=== PATIENT | female | born 1975 | race African-American/Black ===

== ENCOUNTER 2017-09-09 00:32 | Inpatient (IN) | payer MEDICARE ==
[2017-09-09] MEDS ORDERED: Fentanyl 100 MCG/2 ML VIAL ONE ×2 (00:46→02:20)
[2017-09-09 00:59] LABS: Oxyhemoglobin 97.5 % (94.0-97.0); Sodium 137 mmol/L (135-148)
[2017-09-09 01:16] LABS: Bilirubin Negative (Negative); Blood, Urine Large (Negative); Glucose, Urine (Dipstick) Negative (Negative); Ketone, Urine 15 mg/dL (Negative); Nitrite Positive (Negative); Protein, Urine (Dipstick) 100 mg/dL (Neg-Trace)
[2017-09-09 01:19] LABS: Bacteria/HPF 4+ HPF (None Seen); Hyaline Casts/LPF 4-6 HYALINE CAST LPF (0-3 Hyaline); RBC/HPF GREATER THAN 50-TNTC HPF (0-3); Squamous Epithelial None Seen HPF (0-3)
[2017-09-09 01:28] LABS: Hematocrit 19.9 % (36.0-47.0); Mean Platelet Volume 6.1 fL (7.4-10.4); Red Blood Cell (RBC) Count 1.95 mill/uL (4.20-5.40); White Blood Cell (WBC) Count 1.8 thou/uL (4.8-10.8)
[2017-09-09 01:35] LABS: Band 12 % (5-11); Neutrophil 80 % (42-75); Nucleated RBC 5 % (0); Stomatocytes SLIGHT = 2-5 cells (100X) (0-1/hpf)
[2017-09-09 01:36] LABS: ALT (SGPT) 10 U/L (8-55); AST (SGOT) 19 U/L (5-34); Alkaline Phosphatase 294 U/L (40-150); Anion Gap 16 mmol/L (10-20); BUN (Urea Nitrogen) 11 mg/dL (7.0-18.7); Bilirubin, Total 0.6 mg/dL (0.2-1.2); Calc. Creatinine Clearance 0 mL/min (70-130); Calcium 8.7 mg/dL (7.8-10.44); Carbon Dioxide 31 mmol/L (22-29); Chloride 95 mmol/L (98-107); Estimated GFR-MDRD Greater than 90; Globulin 3.5 g/dL (2.4-3.5); Protein, Total 6.6 g/dL (6.0-8.3)
[2017-09-09 01:39] LABS: Troponin I Less than 0.010 ng/mL (< 0.028)
[2017-09-09 01:59] LABS: Mode NON REBREATHER; Modified Allen's Test POSITIVE; Vent NO
[2017-09-09] MEDS ORDERED: Ondansetron HCl/PF 4 MG/2 ML Vial IVP PRN (03:45)
[2017-09-09] MEDS ORDERED: Acetaminophen 325 MG TAB PO PRN (03:45)
[2017-09-09] MEDS ORDERED: Sodium Chloride 0.9% 1,000 ML IV SCH (03:45)
--- NOTE | 2017-09-09 03:46 | PDOC.EVN ---
Event Note - Event Note Event Note: [id number] H&P Dictated 1.Metastatic breast ca 2. Hypotension 3. Acute respiratory distress plan: see orders
[2017-09-09] MEDS ORDERED: Morphine 4 MG/ML VIAL SLOW IVP PRN (03:51)
[2017-09-09] MEDS ORDERED: Lorazepam 2 MG/ML VIAL SLOW IVP PRN (03:51)
[2017-09-09] MEDS ORDERED: Scopolamine 1.5 mg/72 hour Patch TOP PRN (04:07)
--- NOTE | 2017-09-09 06:02 | PDOC.EVN ---
Event Note - Event Note Event Note: [id number] summary dictated 09/09/17 @ 5:50 am
[2017-09-09 06:26] VITALS: BMI 38.6
[2017-09-09] MEDS ORDERED: FLU VACC QS2017-18 36 mo. & older 0.5 ML SYRINGE IM ONE (06:45)
--- NOTE | 2017-09-09 06:45 | DS ---
DATE OF ADMISSION: 09/09/2017 DATE OF : 09/09/2017 at 5:50 a.m. DIAGNOSES: 1. Metastatic breast cancer. 2. Acute respiratory failure. 3. Pancytopenia. 4. Sepsis. 5. Hypotension. 6. Urinary tract infection. TIME OF DATE AND TIME OF : 09/09/2017 at 5:50 a.m. HOSPITAL COURSE: The patient is 41 years old female with a history of metastatic breast cancer, who was on hospice for past 45 days according to the family. The patient was having left shoulder pain a nd trouble breathing and chest pain. So, the patient was brought to the ER. Upon coming to the ER, the patient was placed on nonrebreather, and the patient had a workup done. Initial workup showed pa ncytopenia and UTI. So, the patient was initially given IV antibiotics, Rocephin. Later on, patient 's family wants to keep the patient comfortable and the patient was made DNR. So, patient was admitt ed to the hospital for comfort care. Patient admitted around 2:00 a.m. in the morning to the floor a nd around 5:50 a.m. The patient's family is at the bedside.
--- NOTE | 2017-09-09 07:48 | RAD ---
PORTABLE CHEST: HISTORY: Chest pain. Shortness of breath. COMPARISON: No comparison. FINDINGS/IMPRESSION: Bilateral perihilar infiltrates. Evidence of prior surgery with numerous surgical clips overlying th e right infrahilar region. Evidence of small bilateral effusions. Heart size is mildly prominent. There are some scattered osseous mottled sclerotic densities which could potentially represent metast asis. POS: YAA
[2017-09-09 07:55] VITALS: BP 113/53; TEMP 101
--- NOTE | 2017-09-09 08:42 | HP ---
DATE OF ADMISSION: 09/09/2017 CHIEF COMPLAINT: Respiratory distress. HISTORY OF PRESENT ILLNESS: Patient is a 41-year-old female with stage IV metastatic breast cancer. Per family, the patient responds to chemotherapy and currently on hospice. Patient was on hospice at home for the past 45 days and patient started having some left arm pain, so patient was given some pain medication and patient was transferred to inpatient hospice center. Upon arrival to the inpatient hospice center, patient started having chest pain and trouble breathing, so patient revoked the hospice and came from hospice center to the hospital. Upon arrival to the hospital, patient was having respiratory distress. The patient was initially alert and oriented x1, later on patient became lethargic and not able to get much history, so patient is currently on nonbreather. Per family member request, patient was made DNR and currently getting admitted to the hospital mainly for comfort care. PAST MEDICAL HISTORY: As per HPI. PAST SURGICAL HISTORY: Bilateral mastectomy, kyphoplasty. SOCIAL HISTORY: None available from the patient as patient is currently lethargic. REVIEW OF SYSTEMS: Unavailable from the patient as she is lethargic. MEDICATIONS: Reviewed. ALLERGIES: Reviewed. PHYSICAL EXAMINATION: VITAL SIGNS: At the time of H&P performed, blood pressure is 90/50, heart rate 160, pulse ox 78-80% on nonrebreather, respiratory rate 20. GENERAL: Patient is lethargic. NECK: Supple, no JVD. CARDIOVASCULAR SYSTEM: S1, S2 present. Tachycardic, no murmurs, no rubs, no gallops. RESPIRATORY: Positive for tachypnea. Positive for crackles. Diminished at the bases. Positive for rhonchi. GASTROINTESTINAL: Abdomen is soft, distended, no guarding, no organomegaly. MUSCULOSKELTAL: Bilateral 3+ pitting edema present. CRANIAL NERVE SYSTEM: Lethargic, not following commands. INTEGUMENTARY: No obvious rashes seen. LABORATORY DATA: At the time of H&P performed, sodium of 138, potassium 3.6, chloride 95, CO2 is 31, BUN of 11, creatinine 0.57. CK-MB is 0.4, troponin less than 0.04. ABG showed pH 7.38, pCO2 of 55. White count is 1.8, hemoglobin 6.6, platelet count is 130. Chest x-ray positive for congestion. ASSESSMENT AND PLAN: Patient is a 41-year-old female. 1. Metastatic breast cancer plus acute respiratory distress. Case discussed with the patient's brother, Charles Belle and also another brother, Javid Belle, they both are power of attorneys for medical decision making. Both of them said they want to keep the patient comfortable. They did not want any intubation or CPR. RN was present, while I had a phone discussion with the patient's 2 brothers. Patient was made DNR as the family requested. 2. Acute respiratory distress. We will do p.r.n. breathing treatments. Continue nonrebreather for comfort care. We will give a dose of Lasix 20 mg IV also as the patient appears in discomfort because of chest congestion. If patient's blood pressure tolerates I will give a dose. Otherwise, we will monitor for now. We will continue breathing treatments. 3. Pain, p.r.n. pain meds. 4. Pancytopenia. Patient has no further workup needed. Monitor for now. Case was discussed in detail with the patient, patient's RN, patient's 2 brothers also and we will try to keep the patient comfortable. We will consult Palliative Care Team and Hospice Team in the morning. WILLIED
--- NOTE | 2017-09-09 10:14 | CT ---
PRELIMINARY REPORT/[facility]/EMERGENCY AFTER HOURS PROCEDURE: Addendum created by Ifeanyi Weathers MD on 09/09/2017 5:57 AM Central Time ([place] & [place]) THIS REPORT CONTAINS FINDINGS THAT MAY BE CRITICAL TO PATIENT CARE. The findings were verbally commun icated via telephone conference with GABI WOODARD at 3:49 AM [employer]ATION [employer]LECT[employer] OPERATOR on 09/09/2017. The findings were ac knowledged and understood. Initial Report created on 09/09/2017 3:42 AM Central Time ([place] & [place]) EXAM: CT Angiography Chest With Intravenous Contrast CLINICAL HISTORY: 41 years old, female; Signs and symptoms; Shortness of breath; Prior surgery; Surgery date: 6+ months ; Surgery type: Double mastectomy; Patient HX: Additional history obtained from ems, f40 brought to e d by ems from hospice care for difficulty breathing; Pt arrived on cpap. Pt has a h/o advanced stage 4 breast ca. Family states pt has been complaining of pain in left arm. Pt was given a breathing tala tment for relief of sxs earlier today. Assoc sxs include vomiting. Per ems pt was a dnr, & revoked th is [employer]. Pt, family deny h/o dm. TECHNIQUE: Axial computed tomographic angiography images of the chest with intravenous contrast using pulmonary embolism protocol. MIP reconstructed images were created and reviewed. COMPARISON: No relevant prior studies available. FINDINGS: Pulmonary arteries: Limited study due to significant motion and streak artifacts; there is no definit e evidence of pulmonary embolism to the segmental level; scattered low attenuation areas in the segme ntal and subsegmental pulmonary arteries could be artifactual, although consider repeat/followup study when the patient can hold her breath. Aorta: No acute findings. No thoracic aortic aneurysm. Lungs: Bilateral lower lobe predominant masslike consolidations likely representing metastatic diseas e; superimposed pneumonia cannot be excluded. Soft tissue/thickening along the pauline/central bronchi, most notably on the right narrowing the central bronchi and pulmonary arteries likely representing metastatic disease. Bilateral patchy atelectasis. Pleural space: Bilateral small to moderate pleural effusions. No pneumothorax. Heart: No acute findings. No cardiomegaly. No significant pericardial effusion. Bones/joints: Extensive sclerotic and lytic/destructive osseous metastatic disease with multiple path ologic fractures including spinal compression fractures and probable spinal canal extension/narrowing . No dislocation. Soft tissues: Bilateral mastectomies. Lymph nodes: Prominent left axillary lymph nodes. Limited evaluation of the pauline and subcarinal regio ns. Upper abdomen: Distended stomach. IMPRESSION: There is no obvious central pulmonary embolism, although evaluation of the segmental and subsegmental pulmonary arteries is significantly limited; consider repeat/followup study as described above. Extensive pulmonary and osseous metastatic disease. Bilateral masslike consolidations likely represen t metastatic disease, although superimposed pneumonia not excluded. Other findings above. Thank you for allowing us to participate in the care of your patient. Dictated and Authenticated by: Ifeanyi Weathers MD 09/09/2017 3:42 AM Central Time ([place] & [place]) FINAL REPORT CT PULMONARY ANGIO: No evidence of pulmonary embolus identified. There are bilateral effusions. Bilateral lung infiltra nicol and/or masses, which may reflect metastatic disease to the lungs. Osseous metastatic disease not ed. I am in agreement with the preliminary report. POS: MOISE
[2017-09-09] MEDS ORDERED: ISOVUE-370 76%-LOCM 1 ML ONE (17:37)
== END 2017-09-09 05:50 | disposition expired | DRG 871 ==
LOC: ERS 00:32 → ONC 03:24
PROVIDERS: ADMIT Internal Medicine; ATTEND Internal Medicine
DX: A41.9 Sepsis, unspecified organism (principal); J96.01 Acute respiratory failure with hypoxia; D61.818 Other pancytopenia; N39.0 Urinary tract infection, site not specified; C50.911 Malignant neoplasm of unspecified site of right female breast; C50.912 Malignant neoplasm of unspecified site of left female breast; Z92.21 Personal history of antineoplastic chemotherapy; Z90.13 Acquired absence of bilateral breasts and nipples; Z51.5 Encounter for palliative care; Z66 Do not resuscitate
CPT/HCPCS: 36415; 71010; 71275; 80053; 81003; 81015; 82553; 82805; 83880; 84484; 85025; 85060; 86850; 86900; 86901; 87040; 87077; 87086; 87186; 93005; 96361; 96374; 96375; 96376; J0696; J2060; J2270; J3010; J7620